=== PATIENT | male | born 1955 | race Caucasian/White ===

== ENCOUNTER 2025-03-10 09:44 | Outpatient (CLI) | payer MEDICARE, SELFPAY ==
--- NOTE | ~2025-03-10 | US_ITS ---
US soft tissue groin RT 03/10/2025 10:03 Indication: Pain and palpable area right groin Procedure: Targeted grayscale and color Doppler ultrasound of the right groin soft tissues was performed Comparison: No prior studies for comparison. Findings: Focal fascial defect identified in the right groin. There is heterogeneous soft tissue extending into the defect, which moves with Valsalva maneuver, consistent with fat-containing inguinal hernia. No discrete fluid collection, abscess or organized hematoma is seen. No suspicious soft tissue mass. Impression: 1: Findings consistent with fat-containing right inguinal hernia demonstrated by fascial defect with heterogeneous soft tissue protruding with movement during Valsalva. If there is concern for bowel involvement, correlation with CT recommended. Reviewed, dictated and finalized at location I. [facility] [employer] Impression: 1: Findings consistent with fat-containing right inguinal hernia demonstrated b y fascial defect with heterogeneous soft tissue protruding with movement during Valsalva. If there is concern for bowel involvement, correlation with CT recom mended.
== END 2025-03-10 09:45 | disposition home or self-care (01) ==
PROVIDERS: PCP Internal Medicine Cardiovascular Disease; Visit Provider Internal Medicine
DX: R10.31 Right lower quadrant pain (principal)
CPT/HCPCS: 76882